=== PATIENT | female | born 1995 | race Caucasian/White ===

== ENCOUNTER 2019-11-05 20:46 | Emergency (ER) | payer OTHER ==
[~2019-11-05] VITALS: Ht 165.1 cm; Wt 99.8 kg
[2019-11-05 20:50] VITALS: BP 119/78
[2019-11-05] MEDS ORDERED: VALIUM2 MG PO (21:26)
[2019-11-05] MEDS ORDERED: MECLIZINE HCL25 M1 PO (21:26)
== END 2019-11-05 22:29 | disposition home or self-care (01) ==
LOC: ER 20:46
DX: S06.9X0A Unspecified intracranial injury without loss of consciousness, initial encounter (principal); H91.92 Unspecified hearing loss, left ear; F17.200 Nicotine dependence, unspecified, uncomplicated; Z90.49 Acquired absence of other specified parts of digestive tract; Z88.2 Allergy status to sulfonamides; Z88.5 Allergy status to narcotic agent; Z88.0 Allergy status to penicillin